=== PATIENT | male | born 1950 | race African-American/Black ===

== ENCOUNTER → 2017-09-02 | Outpatient (CLI) | payer MEDICARE, OTHER ==
--- NOTE | 2017-09-02 12:35 | RADIOLOGY REPORT (SQ) ---
EXAM DESCRIPTION: MRI LUMBAR SPINE WITHOUT COMPLETED DATE/TIME: 09/02/2017 10:29 am REASON FOR STUDY: LUMBAR RADICULOPATHY (M54.17) M54.17 RADICULOPATHY, LUMBOSACRAL REGION COMPARISON: None. TECHNIQUE: Sagittal and Axial imaging includes T1, T2, STIR and gradient echo sequences. Coronal T2/ HASTE imaging. LIMITATIONS: None. FINDINGS: VISUALIZED UPPER ABDOMEN: Limited evaluation. No acute or suspicious findings suggested. SEGMENTATION: No transitional anatomy. The lowest well-developed disc space is labeled L5-S1. ALIGNMENT: Minimal anterolisthesis of L3 over L4, and L4 over L5. VERTEBRAE: Intact. BONE MARROW: Red marrow conversion throughout the lumbar spine, correlate clinically for anemia DISC SIGNAL: Diffuse decreased T2 weighted intervertebral disc signal from L2-3 through L5-S1. POSTERIOR ELEMENTS: Generally intact. No pars defect evident. HARDWARE: None in the spine. CORD AND CONUS: Normal in size and signal intensity. Conus at the L1 level. SOFT TISSUES: No aortic aneurysm seen. No bulky retroperitoneal adenopathy or mass. No paraspinal mas s or fluid. T11-12: Very mild bilateral facet hypertrophy. No central or foraminal encroachment. T12-L1: Mild bilateral facet hypertrophy. No central or foraminal encroachment. L1-L2: Mild bilateral facet and ligament hypertrophy. No central or foraminal stenosis. L2-L3: Mild diffuse posterior disc bulging, moderate bilateral facet and ligament hypertrophy. Borde rline central canal narrowing. Mild right, mild to moderate left foraminal narrowing without exiting L2 nerve root impingement. L3-L4: Mild diffuse posterior disc bulge and bony spurring, moderate bilateral facet and ligament hyp ertrophy. Mild central canal stenosis. Moderate bilateral foraminal narrowing without definite exit ing L3 nerve root impingement. L4-L5: Mild diffuse posterior disc bulge and bony spurring, bulky bilateral facet and ligament hypert rophy. High-grade central canal stenosis with effacement of the CSF around the lumbar nerve roots be st shown on axial T2 image 24. There is moderate bilateral foraminal narrowing right greater than le ft without definite exiting L4 nerve root impingement. L5-S1: Broad diffuse posterior disc bulging with a right paracentral disc herniation is present. Thi s flattens the thecal sac at the takeoff of the right S1 nerve root. Disc fragment measures about 9 to 10 mm in size. This is best shown on coronal image 14, axial T2 image 30, axial T1 image 19. Mil d central canal narrowing. No significant foraminal narrowing. SACRUM: Visualized upper sacrum intact. OTHER: No other significant findings. IMPRESSION: Right paracentral disc herniation at L5-S1, flattening the right S1 nerve root as it exi ts the thecal sac. Severe central canal stenosis at L4-5. TECHNICAL DOCUMENTATION: JOB ID: [id number] [email or web address]- All Rights Reserved Reading location - IP/workstation name: [email or web address]
== END ==
LOC: RAD 09:09
PROVIDERS: ATTEND Physician Assistant
DX: M54.17 Radiculopathy, lumbosacral region (principal)
CPT/HCPCS: 72148

== ENCOUNTER → 2018-10-19 | Outpatient (CLI) | payer MEDICARE, OTHER ==
--- NOTE | 2018-10-19 11:29 | RADIOLOGY REPORT (SQ) ---
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 TECHNIQUE: Grayscale ultrasound, Doppler velocity and spectra, and color Doppler images acquired of the extra-cranial carotid and vertebral arteries. Images stored on PACS. LIMITATIONS: None. FINDINGS: RIGHT CAROTID CCA Velocities: Within normal limits. ICA Velocities Peak systolic 58 cm/s. End diastolic 30 cm/s. Proximal ICA/CCA peak systolic ratio 0.8 say. Spectra normal. No significant plaque. LEFT CAROTID CCA Velocities: Within normal limits. ICA Velocities Peak systolic 66 cm/s. End diastolic 30 cm/s. Proximal ICA/CCA peak systolic ratio 0.68. Spectra normal. No significant plaque. VERTEBRAL ARTERIES: Antegrade flow. Normal waveforms. SUBCLAVIAN ARTERIES: No finding. OTHER: No other significant finding. IMPRESSION: NO HEMODYNAMICALLY SIGNIFICANT STENOSIS. COMMENT: Quality ID #[id number]: Velocity criteria are extrapolated from the diameter data as defined by t he Society of Radiologists in Ultrasound Consensus Conference. Radiology 2003: 229; 340-346. TECHNICAL DOCUMENTATION: JOB ID: [id number] [employer]- All Rights Reserved Reading location - IP/workstation name: [email or web address]
--- NOTE | 2018-10-19 19:49 | XCELERA REPORT ---
[address] [address] Lower Extremity Arterial Evaluation Name: CHET FINNEGAN Age: 67 yrs Gender: Male : 1950 Patient Status: Preadmit Patient Location: [facility] Study Date: 10/19/2018 08:26 AM Procedure: A color flow and duplex scan of the lower extremity arteries was performed bilaterally with velocity and waveform anaylsis. Reason For Study: NEUROPATHY DUE TO TYPE II DM Ordering Physician: LUIS ENRIQUE PARDEES Performed By: Edmund Cadena Measurements and Calculations Right Left NATIONAL SECRETARY PSV 125.7 113.9 cm/sec Prox PFA PSV 57.0 94.3 cm/sec Prox SFA PSV 123.4 115.5 cm/sec Mid SFA PSV -110.0 -111.6cm/sec Dist SFA PSV -93.5 -56.5 cm/sec Prox Pop A PSV 55.0 57.5 cm/sec Dist JENNIFER PSV 98.1 61.3 cm/sec Dist WIRELESS ARCHITECT PSV 84.9 64.4 cm/sec Rivera Pedis PSV 50.3 68.4 cm/sec Right Side Arterial Evaluation Normal velocity and triphasic waveforms noted from the Common Femoral artery to the infrageniculate vessels . Left Side Arterial Evaluation Normal velocity and triphasic waveforms noted from the Common Femoral artery to the infrageniculate vessels . Interpretation Summary No hemodynamically significant lesions in the bilateral lower extremities, on duplex imaging, at rest. : LUIS ENRIQUE PAREDES > Nilton Bates
== END ==
LOC: SP 08:02
PROVIDERS: ATTEND Internal Medicine Geriatric Medicine
DX: E11.43 Type 2 diabetes mellitus with diabetic autonomic (poly)neuropathy (principal)
CPT/HCPCS: 93880; 93925